=== PATIENT | male | born 1990 | race Two or more races ===

== ENCOUNTER 2022-02-26 21:29 | Emergency (ER) | payer OTHER, SELFPAY ==
[2022-02-26 21:32] VITALS: BP 151/82; PULSE 118; O2SAT 99
[2022-02-26 21:34] VITALS: BP 120/81; PULSE 108; RESP 16; TEMP 36.7; O2SAT 97
[2022-02-26 21:41] VITALS: PULSE 101; RESP 15; O2SAT 94; BMI 25.8
--- NOTE | 2022-02-26 21:41 | ED.OVERDOSE ---
HPI - Overdose General Chief Complaint: Overdose Stated Complaint: OD Time Seen by Provider: 02/26/22 21:39 Source: patient Mode of arrival: EMS History of Present Illness HPI Narrative: A patient with history of episode use of heroin wanted to try this time as his brother is also addicted use 2 bags of heroin snorted was found unconscious in the bathroom apneic received 0.8 mg nasal Narcan and 1 mg IV Narcan prior to arrival by EMS patient improved back to baseline nauseated and vomiting patient denies any chest pain or any other history in the past Related Data Allergies Allergy/AdvReac Type Severity Reaction Status Date / Time No Known Allergies Allergy Verified 02/26/22 21:39 Review of Systems Review of Systems: Yes all other systems are reviewed and are negative [facility] Social History Social History Advance Directives: No Physical Exam Vital Signs: Vital Signs: Last Vital Signs Temp 98.1 F 02/26/22 21:34 Pulse 87 02/26/22 22:35 Resp 16 02/26/22 22:35 BP 120/81 02/26/22 21:34 Pulse Ox 96 02/26/22 22:35 BMI result Body Mass Index 25.8 Appearance: Alert. Oriented X3. No acute distress. Eyes: PERRLA, No Nystagmus ENT: Pharynx normal. Oral Mucosa moist Neck: Normal inspection. Neck supple. CVS: Normal heart rate and rhythm. Pulses normal. Respiratory: No respiratory distress. Equal air entry bilateral, no wheezing/rales/rhonchi Abdomen: Soft and nontender. Bowel sounds are present Skin: Skin warm and dry. Normal skin color. Normal skin turgor. Neuro: Oriented X 3. No motor deficit. No sensory deficit.No cerebellar signs , cranial nerves II-XII intact Course Reevaluation(s) Reevaluation #1: Patient removed his IV line and eloped from the ER assistant strength coach spoke to the patient already patient refused for any help was saturating 96% at the time Time: 23:00 Discharge Plan Discharge Clinical Impression: Drug overdose Patient Disposition: Elopement Interventions: ED Discharge Assessment Last Done: 02/26/22 23:05 Discharge Date/Time: 02/26/22 23:23
[2022-02-26] MEDS: Ondansetron ODT 4 MG TAB.RAPDIS TRANSLINGU (21:58)
[2022-02-26 21:59] VITALS: PULSE 96; RESP 15; O2SAT 94
[2022-02-26 22:35] VITALS: PULSE 87; RESP 16; O2SAT 96
--- NOTE | 2022-02-26 22:46 | MHC.CARE ---
CARE team met with pt who overdosed and was brought to the ED. Pt declined to speak with this law writer and was not engaged. He asked if he can leave right now and take off all of his medical equipment. Pt was not interested in speaking with this law writer. Provider aware.
--- NOTE | 2022-02-26 22:55 | PC.NURSE ---
pt was noted not to be in the room when this RN went to check on pt. cardiac leads sitting on bed. BR checked as well as the WR/front of ER. [place] stated that pt left 2 minutes prior. Security and [employer] contacted to notify them that pt has left with an IV. After further investigating it was determined that pt pulled his own IV out prior to leaving as evidenced by blood on the sheets and an EMS IV in the trash. [employer] and security contacted to make them aware.
== END 2022-02-26 23:23 | disposition left against medical advice (07) ==
LOC: HO.ED 23:24
PROVIDERS: Emergency Provider Internal Medicine
DX: T40.1X1A Poisoning by heroin, accidental (unintentional), initial encounter (principal); Y92.9 Unspecified place or not applicable; Z71.51 Drug abuse counseling and surveillance of drug abuser
CPT/HCPCS: 99283; 99285

== ENCOUNTER 2022-03-03 02:44 | Emergency (ER) | payer OTHER, SELFPAY ==
[2022-03-03 02:53] VITALS: BP 144/73; BP 160/100; PULSE 112; PULSE 90; RESP 14; TEMP 36.6; O2SAT 97; BMI 21.9
--- NOTE | 2022-03-03 02:55 | ED_ITS ---
HPI - General Adult General Chief complaint: ETOH/Substance Use Stated complaint: Drug Use Time Seen by Provider: 03/03/22 02:55 Source: EMS Mode of arrival: EMS Limitations: altered mental status History of Present Illness HPI narrative: Patient comes to the emergency room via EMS. Patient was found by police department in a park in [place]. Apparently, patient used PCP, he was pretending to be a train himself. Police Department called EMS and they brought him to emergency room. Patient was here 5 days ago for a heroin overdose. Patient is awake and alert, but very confused, talking nonsense. Patient is calm, not aggressive, unable to answer any questions Related Data Allergies Allergy/AdvReac Type Severity Reaction Status Date / Time No Known Allergies Allergy Verified 02/26/22 21:39 Review of Systems Review of Systems: Yes Unobtainable due to mental status [facility] Past Medical History Medical History (Updated 03/03/22 @ 03:01 by Kiah Romo MD) Substance abuse Social History Social History Alcohol intake: unknown Patient Tobacco Use Status: Tobacco use Unknown Use of substances other than those prescribed or required for medical reasons: Yes Substance Use Type: Hallucinogens Substance Use Frequency: Chronic Longstanding Last Used Substance: Just Prior to Admission Advance Directives: No Physical Exam ED Vital Signs: Vital Signs - 24 hr 03/03/22 02:53 03/03/22 04:55 03/03/22 06:42 Temperature 98 F Pulse Rate 90 74 73 Respiratory Rate 14 18 14 Blood Pressure 144/73 H 127/82 145/110 H Pulse Oximetry 97 96 95 BMI result Body Mass Index 21.9 Const Other: Appearance: Alert. Oriented X1. No acute distress. Very confused/intoxicated Eyes: Pupils equal, round and reactive to light. ENT: Pharynx normal. Neck: Normal inspection. Neck supple. No lymph nodes noted. No crepitus CVS: Normal heart rate and rhythm. Pulses normal. Normal S1 and S2 Respiratory: No respiratory distress. Breath sounds normal. No Wheezing. No rales Abdomen: Soft and nontender. No rigidity. No distention. Skin: Skin warm and dry. Normal skin color. Normal skin turgor. Extremities: No lower extremity edema. No Lacerations. No Rash Neuro: No motor deficit. No sensory deficit. Moving all extremities. No slurred speech. CN 2 through 12 grossly intact Psych: calm, cooperative, intoxicated Course Course Course Narrative: At this time, patient is awake, alert, normal vitals. Patient is very confused, likely used heroin and PCP. Patient is calm, not aggressive, redirectable. Plan is to Metabolize to freedom. Once patient is coherent, we will offer a care/SUDE consult Physician observation started at 03:00 This time 07:13, patient is awake, alert, cooperative, but he is still under the influence of drugs. Sude evaluation pending Sign-out given to Dr. Madrigal Discharge Plan Discharge Clinical Impression: Substance abuse Patient Disposition: Still a Patient
--- NOTE | 2022-03-03 04:33 | ECG_ITS ---
Test Reason : cocaine, pcp use Blood Pressure : / mmHG Vent. Rate : 079 BPM Atrial Rate : 079 BPM P-R Int : 146 ms QRS Dur : 074 ms QT Int : 362 ms P-R-T Axes : 078 075 052 degrees QTc Int : 415 ms Normal sinus rhythm Normal ECG No previous ECGs available Referred By: Generic ED Physician Electronically Signed By:ADDY MERCER MD
[2022-03-03 04:55] VITALS: BP 127/82; PULSE 74; RESP 18; O2SAT 96
[2022-03-03 06:42] VITALS: BP 145/110; PULSE 73; RESP 14; O2SAT 95
--- NOTE | 2022-03-03 06:46 | PC.NURSE ---
Patient continues to be cooperative but is still quite high as he did a decent amount of PCP. Patient is not quite ready for discharge.
[2022-03-03 08:20] VITALS: BP 134/76; PULSE 69; RESP 16; TEMP 36.6; O2SAT 98
--- NOTE | 2022-03-03 09:00 | PC.NURSE ---
pt seen by ruddy (rn, care team) pt aware of plan of care.
--- NOTE | 2022-03-03 09:09 | MHC.RECOVRN ---
Met with pt in ED16 to discuss substance use. Pt pacing around room, anxious to retrieve belongings/phone and to be discharged. Pts affect inappropriate for discussion at times, smiling throughout entire conversation, dismissive of substance use. 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 Pt states I have kids and a home, I'm not supposed to be held here. Pt reports once a month going to the [facility] to use PCP, INH. Pt reports usually I am left alone, this time they didn't want to leave me alone. Pt reports last 2 weeks have been a rollercoaster, referencing using heroin for the first time. Pt reports using heroin once on 02/26, 2 bags IN, to see what it's all about. This use resulted in overdose and pt was brought to [facility]. Pt reports younger brother has been using opiates x 4 years and pt was curious what brother was experiencing. After overdose, pt reports using heroin one other time, IV. Pt states I don't get it, the vomiting is awful. It's not for me. Pt reports cocaine use approx twice per year with friends, has used IN as well as IV. Pt reports marijuana use all day every day. Pt denies substance use interfering with life, denies difficulty abstaining from use. Pt provided with t/w contact information if questions or concerns arise. Discussed harm reduction, including [facility] syringe access program. Pt encouraged to pass along t/w information to brother if interested. Discussed with RN as well as provider.
== END 2022-03-03 09:27 | disposition home or self-care (01) ==
PROVIDERS: Emergency Provider Emergency Medicine
DX: T40.1X1A Poisoning by heroin, accidental (unintentional), initial encounter (principal); F14.10 Cocaine abuse, uncomplicated; Y92.9 Unspecified place or not applicable; Z71.51 Drug abuse counseling and surveillance of drug abuser
CPT/HCPCS: 93005; 99283; 99285

== ENCOUNTER 2022-05-31 01:02 | Emergency (ER) | payer SELFPAY ==
[2022-05-31 01:10] VITALS: BP 110/80; PULSE 100; O2SAT 97; BMI 22.9
--- NOTE | 2022-05-31 03:02 | PC.NURSE ---
I triaged this pt due to the RN of the section being involved in an emergency. I instructed the pt to stay put and wait for the doctor to come over, that it may be a few minutes since there were two emergencies happening at the same time. I went to help other pt's and the next time I looked, th pt was not in the bed. I called security to check the cameras and they said around 01:50, the pt walked out of the ER. Provider and Charge Nurse aware.
== END 2022-05-31 02:25 | disposition left against medical advice (07) ==
PROVIDERS: Emergency Provider Emergency Medicine
DX: T40.1X1A Poisoning by heroin, accidental (unintentional), initial encounter (principal); Y92.9 Unspecified place or not applicable
CPT/HCPCS: 99282; 99284

== ENCOUNTER 2022-06-07 18:09 | Emergency (ER) | payer SELFPAY ==
--- NOTE | 2022-06-07 19:19 | ECG_ITS ---
Test Reason : afib Blood Pressure : / mmHG Vent. Rate : 114 BPM Atrial Rate : 000 BPM P-R Int : 000 ms QRS Dur : 154 ms QT Int : 282 ms P-R-T Axes : 000 -16 -03 degrees QTc Int : 388 ms Atrial fibrillation with rapid ventricular response with premature ventricular or aberrantly conducted complexes Left bundle branch block Abnormal ECG When compared with ECG of 03-MAR-2022 02:53, Atrial fibrillation has replaced Sinus rhythm Left bundle branch block is now Present Referred By: Marin Pyle Electronically Signed By:SURESH SOUZA
[2022-06-07 19:50] LABS: INTERNATIONAL NORM RATIO 1.5 (0.9-1.1); Prothrombin Time 17.4 SEC (10.0-13.1)
[2022-06-07 20:02] LABS: Appearance Urine HAZY; Color Urine RED; Glucose Urine UA NEG (NEG); Leukocyte Esterase Urine NEG (NEG); Nitrite Urine POS (NEG); PH 7.5 (5.0-8.0); UACC Culture Trigger YES; Urine Blood 3+ (NEG); Urine Ketones 5 MG/DL (NEG); Urine Protein 2+ MG/DL (NEG-TRACE)
[2022-06-07 20:08] LABS: Lactic Acid 15.9 mmol/L (0.5-2.0)
[2022-06-07 20:14] LABS: Bacteria Urine 1+ /LPF; WBC Urine 0-2 /HPF (0-4)
[2022-06-07 20:26] VITALS: PULSE 76; TEMP 28.9; O2SAT 92
[2022-06-07 20:28] LABS: Amphetamine Screen Urine Not Detected (Not Detect); Barbiturates, Urine Not Detected (Not Detect); Benzodiazepines Screen Urine Not Detected (Not Detect); Cannabinoid Screen Urine POSITIVE (Not Detect); Cocaine Screen Urine POSITIVE (Not Detect); Fentanyl, urine POSITIVE (Not Detect); Opiate Screen Urine POSITIVE (Not Detect); Phencyclidine Screen Urine POSITIVE (Not Detect)
[2022-06-07 21:32] LABS: Reflex Lactate? Lactic Acid Added
[2022-06-07] MEDS: Morphine Sulfate 10 MG/ML CARTRIDGE 8 MG IVPUSH (22:00)
--- NOTE | 2022-06-07 22:10 | ED.OVERDOSE ---
HPI - Overdose General Stated Complaint: cardiac arrest Time Seen by Provider: 06/07/22 18:14 Source: family and EMS Mode of arrival: EMS Limitations: other (Patient unresponsive, CPR and ventilation assisted by [id number]) History of Present Illness HPI Narrative: 31-year-old male who presents to the emergency department in respiratory and cardiac arrest. Information came from EMS and the patient's family. According to the family the patient has been depressed recently. The patient went into the basement and someone went to check on him and found him unresponsive. The down time was unknown. BLS responded and found the patient unresponsive, there was emesis on his face and shirt. He had no pulse and no spontaneous respirations. He was given 2 doses of intranasal Narcan with no response. CPR was started and his ventilations were assisted with a bag-valve mask. BLS was on scene for approximately 15-20 minutes with no return of spontaneous circulation. The patient was then transported to the emergency department by the S crew. On presentation to the emergency department the patient did have emesis on his face and chest. The patient's pupils were 3 mm and fixed. He had no spontaneous breathing or spontaneous movement, there were no heart sounds to auscultation. CPR was continued, an intraosseous line was obtained an IV line was also obtained. I used a GlideScope to intubate the patient. There was a large amount of emesis in his mouth which was suctioned. Patient was easily intubated with a 7.5 endotracheal tube. Patient has symmetric breath sounds with bagging. The patient was given multiple rounds of epinephrine for pulses electrical activity, the patient had a wide complex tachycardia. After 4 to 5 doses of epinephrine, we were unable to achieve ROSC and I did pronounce the patient . However, the patient did return with a spontaneous pulse . Patient was ordered to get Levophed at its maximal dose. The patient then lost his pulse and his blood pressure and CPR with multiple rounds of epinephrine was started again. ROSC was achieved but the patient then lost his pulse and blood pressure again. Another round of CPR and epinephrine was given and the patient have ROSC with a good pulse and blood pressure. However after a period of time the patient's blood pressure dropped and dopamine was added to the Levophed. I did discuss the patient's status with our marine driller, Dr. Shrestha. I estimated that the patient had a down time of at least 15-20 minutes without any CPR ventilation assist prior to BLS intervention. In the emergency department we had at least 20-30 minutes more of CPR and ventilation assist without achieving ROSC. Both Dr. Shrestha and I felt that the patient most likely had significant hypoxic brain damage and that his chance for a neurologic recovery was very low. The patient's mother is his next of kin and healthcare proxy, the patient has a significant other who is the mother of his children and a brother who was here in the emergency department as well as some other friends. After long discussion, it was agreed that the patient's chance of recovery was very low and that the chance of anoxic brain damage was very high. The family then agreed that the patient should be made comfort measures only. The patient was extubated and shortly after extubation the patient with time of at 22:05 hours. In reviewing the patient's record the patient was seen here in the emergency department for a intranasal heroin overdose requiring Narcan rescue. He was also seen in the emergency department on 03/03/2022 for altered mental status felt to be secondary to PCP and heroin use. The mother of the patient's children believes that the patient does not use narcotics and that the patient was trying to kill himself, she believes also that there may have been a suicide noted home however this was not reported to be by the paramedics. Related Data Allergies Allergy/AdvReac Type Severity Reaction Status Date / Time No Known Allergies Allergy Verified 02/26/22 21:39 [facility] Past Medical History [facility] Narrative: Past medical history: Polysubstance use disorder Medical History Substance abuse Social History Social History Alcohol intake: former Patient Tobacco Use Status: Tobacco use Unknown Substance Use Type: Heroin Advance Directives: No Advance Directives Information Provided: No Physical Exam Vital Signs: Vital Signs: Last Vital Signs FiO2 100 06/07/22 20:26 Const: Other: Patient has emesis on his face and chest, he has no spontaneous respiratory effort or spontaneous movement. His respirations were being assisted by [id number] and CPR was in progress by EMS personnel. HEENT: Other: Normal cephalic, there is some bruising on his head noted. Pupils were 3 mm and fixed with no response to light reflex. Neck: Other: No evidence of trauma Chest: Other: No spontaneous rise of his chest muscles Resp: Other: No respiratory effort Cardio: Other: No auscultated heart sounds GI: Other: No bowel sounds Skin: Other: The patient does have some skin tears on his left shoulder right arm Neuro: Other: No spontaneous movement Course Course Course Narrative: 31-year-old male who presented to the emergency department in respiratory and cardiac arrest after being found unresponsive in his basement of his residence. The patient does have a history of polysubstance use disorder has had at least 2 ER visits , 1 for heroin overdose and the 2nd 1 for PCP and possibly heroin use. On presentation to the emergency department he was intubated and we did do multiple rounds of ACLS resuscitation with eventual ROSC. Given his prolonged down time, the patient's chance of intact neurologic recovery was very unlikely and the family did agree to making the patient comfort measures only. Shortly after elective extubation the patient and his time of was 22:05. The patient's laboratory evaluation was somewhat limited since the specimen was hemolyzed however his lactic acid was high at 15.9, his troponin was elevated at 8326 suggesting myocardial injury. Urine tox screen was positive for opiates, fentanyl, PCP, cocaine and marijuana. I did inform the patient's family of urine tox screen results. The case was discussed with the biomedical engineering aide's office and they did assume jurisdiction over the body. MDM - Overdose Medical Records Attestation: I reviewed the patient's medical records. Lab Data Attestation: I reviewed the patient's lab results. Result diagrams: 06/07/22 19:30 Labs: Lab Results 06/07/22 06/07/22 06/07/22 Range/Units 18:21 19:30 19:30 PT 17.4 H (10.0-13.1) SEC INR 1.5 H (0.9-1.1) Sodium Cancelled Potassium Cancelled Chloride Cancelled Carbon Dioxide Cancelled Anion Gap Cancelled BUN Cancelled Creatinine Cancelled Estim Creat Clear Calc Cancelled Estimated GFR Cancelled POC Glucose 62 (60-115) mg/dL Random Glucose Cancelled Lactic Acid (0.5-2.0) mmol/L Calcium Cancelled Troponin I High Sens (<3.5-35.0) ng/L Urine Color Urine Appearance Urine pH (5.0-8.0) Ur Specific [place] (1.005-1.025) Urine Protein (NEG-TRACE) MG/DL Urine Glucose (UA) (NEG) MG/DL Urine Ketones (NEG) MG/DL Urine Blood (NEG) Urine Nitrite (NEG) Ur Leukocyte Esterase (NEG) Urine RBC (0) /HPF Urine WBC (0-4) /HPF Ur Squamous Epith Cells /LPF Urine Bacteria /LPF Urine Opiates Screen (Not Detect) Urine Fentanyl Screen (Not Detect) Ur Barbiturates Screen (Not Detect) Ur Phencyclidine Scrn (Not Detect) Ur Amphetamines Screen (Not Detect) U Benzodiazepines Scrn (Not Detect) Urine Cocaine Screen (Not Detect) U Marijuana (THC) Screen (Not Detect) 06/07/22 06/07/22 06/07/22 Range/Units 19:30 19:30 19:42 PT (10.0-13.1) SEC INR (0.9-1.1) Sodium Potassium Chloride Carbon Dioxide Anion Gap BUN Creatinine Estim Creat Clear Calc Estimated GFR POC Glucose (60-115) mg/dL Random Glucose Lactic Acid 15.9 H* (0.5-2.0) mmol/L Calcium Troponin I High Sens 8326.1 H* (<3.5-35.0) ng/L Urine Color RED A Urine Appearance HAZY Urine pH 7.5 (5.0-8.0) Ur Specific [place] 1.020 (1.005-1.025) Urine Protein 2+ H (NEG-TRACE) MG/DL Urine Glucose (UA) NEG (NEG) MG/DL Urine Ketones 5 (NEG) MG/DL Urine Blood 3+ H (NEG) Urine Nitrite POS H (NEG) Ur Leukocyte Esterase NEG (NEG) Urine RBC 15-29 H (0) /HPF Urine WBC 0-2 (0-4) /HPF Ur Squamous Epith Cells NONE /LPF Urine Bacteria 1+ /LPF Urine Opiates Screen (Not Detect) Urine Fentanyl Screen (Not Detect) Ur Barbiturates Screen (Not Detect) Ur Phencyclidine Scrn (Not Detect) Ur Amphetamines Screen (Not Detect) U Benzodiazepines Scrn (Not Detect) Urine Cocaine Screen (Not Detect) U Marijuana (THC) Screen (Not Detect) 06/07/22 Range/Units 19:43 PT (10.0-13.1) SEC INR (0.9-1.1) Sodium Potassium Chloride Carbon Dioxide Anion Gap BUN Creatinine Estim Creat Clear Calc Estimated GFR POC Glucose (60-115) mg/dL Random Glucose Lactic Acid (0.5-2.0) mmol/L Calcium Troponin I High Sens (<3.5-35.0) ng/L Urine Color Urine Appearance Urine pH (5.0-8.0) Ur Specific [place] (1.005-1.025) Urine Protein (NEG-TRACE) MG/DL Urine Glucose (UA) (NEG) MG/DL Urine Ketones (NEG) MG/DL Urine Blood (NEG) Urine Nitrite (NEG) Ur Leukocyte Esterase (NEG) Urine RBC (0) /HPF Urine WBC (0-4) /HPF Ur Squamous Epith Cells /LPF Urine Bacteria /LPF Urine Opiates Screen POSITIVE H (Not Detect) Urine Fentanyl Screen POSITIVE H (Not Detect) Ur Barbiturates Screen Not Detected (Not Detect) Ur Phencyclidine Scrn POSITIVE H (Not Detect) Ur Amphetamines Screen Not Detected (Not Detect) U Benzodiazepines Scrn Not Detected (Not Detect) Urine Cocaine Screen POSITIVE H (Not Detect) U Marijuana (THC) Screen POSITIVE H (Not Detect) Critical Care Time Critical Care Time Critical Care Time: Yes Total Critical Care Time: 135 Attestation: Critical Care: The patient was critically ill with a high probability of imminent or life threatening deterioration. I spent greater than 30 minutes of discontinuous time evaluating the patient,delivering critical care at the bedside, discussing and evaluating pertinent data with consultants. Critical care time does not include time spent performing separately billable procedures or teaching. Total time spent performing critical care was 135 minutes. Discharge Plan Discharge Clinical Impression: Opiate overdose, due to respiratory arrest Patient Disposition:
--- NOTE | 2022-06-07 22:19 | PC.NURSE ---
call out to [employer] spoke to Zia who put me on an oncall list.
[2022-06-07 22:22] LABS: Glucose, Whole Blood 62 mg/dL (60-115)
--- NOTE | 2022-06-08 00:15 | PC.NURSE ---
family will decide about home. plan to call switch board on 06/08. ex can be reached at [phone]. Maureen Prasad. mother's number is in chart.
--- NOTE | 2022-06-08 00:25 | PC.NURSE ---
At 0008 the Licensed Physical Therapist called and spoke with the primary nurse Tanisha Rodriguez,they accepted .
== END 2022-06-07 23:04 | disposition expired ==
PROVIDERS: Emergency Provider Emergency Medicine Emergency Medical Services
DX: R09.2 Respiratory arrest (principal); T40.1X1A Poisoning by heroin, accidental (unintentional), initial encounter; I48.91 Unspecified atrial fibrillation; Y92.009 Unspecified place in unspecified non-institutional (private) residence as the place of occurrence of the external cause; F11.288 Opioid dependence with other opioid-induced disorder; F14.29 Cocaine dependence with unspecified cocaine-induced disorder; F12.29 Cannabis dependence with unspecified cannabis-induced disorder; Z79.899 Other long term (current) drug therapy
CPT/HCPCS: 31500; 36415; 80307; 81001; 81003; 82947; 83605; 84484; 85610; 87086; 93005; 94002; 99282; 99283; 99285; 99291; 99292; J0153; J0171; J2270